=== PATIENT | male | born 1995 | race African-American/Black ===

== ENCOUNTER 2018-01-21 16:45 | Emergency (ER) | payer SELFPAY ==
[~2018-01-21] VITALS: Ht 160 cm; Wt 60.2 kg
[2018-01-21 16:55] VITALS: BP 127/73
[2018-01-21] MEDS ORDERED: ALBUTEROL SULFATE 2.5 MG/3 ML ONE (17:57)
[2018-01-21] MEDS ORDERED: ALBUTEROL SULFATE 2.5 MG/3 ML NPPB ONE (18:00)
== END 2018-01-21 18:35 | disposition home or self-care (01) ==
LOC: ED 18:29
DX: J40 Bronchitis, not specified as acute or chronic (principal)
CPT/HCPCS: 71046; 99284; J7613